=== PATIENT | male | born 1990 | race Caucasian/White ===

== ENCOUNTER 2018-12-01 18:58 | Emergency (ER) | payer MEDICAID ==
[~2018-12-01] VITALS: Ht 177.8 cm; Wt 66.0 kg
[2018-12-01 19:07] VITALS: BP 139/92
[2018-12-01] MEDS ORDERED: ketorolac trometh. 30mg/ml inj. IV ONE (20:00)
[2018-12-01] MEDS ORDERED: morphine 4 MG/ML inj SYRINge IV ONE (20:45)
[2018-12-01] MEDS ORDERED: ondansetron 4mg rapidly disintigrating tab PO ONE (20:45)
[2018-12-01] MEDS ORDERED: morphine 4 MG/ML inj SYRINge IM ONE (21:25)
[2018-12-01] MEDS ORDERED: MORP15TA PO (21:26)
== END 2018-12-01 21:35 | disposition home or self-care (01) ==
LOC: ER 19:00
DX: M25.511 Pain in right shoulder (principal); G89.29 Other chronic pain; Z88.6 Allergy status to analgesic agent; Z79.899 Other long term (current) drug therapy; X50.1XXA Overexertion from prolonged static or awkward postures, initial encounter; Y93.89 Activity, other specified; Y92.89 Other specified places as the place of occurrence of the external cause; Y99.8 Other external cause status
CPT/HCPCS: 73030; 96374; 96375; 99283; J1885; J2270

== ENCOUNTER 2018-12-04 13:34 | Emergency (ER) | payer MEDICAID ==
[~2018-12-04] VITALS: Ht 177.8 cm; Wt 65.0 kg
[~2018-12-04 13:34] MED LIST: MORP15TA PO
[2018-12-04] MEDS ORDERED: MORP15TA PO (14:46)
[2018-12-04] MEDS ORDERED: HYDR-4353 PO (14:46)
--- NOTE | 2018-12-04 15:00 | NUR ---
Pt complained of nausea. Provider aware. Awaiting zofran order.
[2018-12-04] MEDS ORDERED: ondansetron 4mg rapidly disintigrating tab PO ONE (15:05)
== END 2018-12-04 15:37 | disposition home or self-care (01) ==
LOC: ER 13:35
DX: M25.512 Pain in left shoulder (principal); R20.0 Anesthesia of skin; R20.2 Paresthesia of skin; G89.29 Other chronic pain; Z88.8 Allergy status to other drugs, medicaments and biological substances; Z79.899 Other long term (current) drug therapy
CPT/HCPCS: 99283